=== PATIENT | male | born 1945 | race African-American/Black ===

== ENCOUNTER → 2018-01-02 | Outpatient (CLI) | payer MEDICARE | LOC: M.MRI 12-26 15:53 | DX: M47.896 Other spondylosis, lumbar region (principal); M47.892 Other spondylosis, cervical region ==

== ENCOUNTER → 2018-01-31 | Outpatient (CLI) | payer MEDICARE | LOC: M.LAB 11:41 | DX: N40.1 Benign prostatic hyperplasia with lower urinary tract symptoms (principal) ==

== ENCOUNTER 2018-10-31 17:00 | Inpatient (IN) | payer MEDICARE ==
[~2018-10-31] VITALS: Ht 175.3 cm; Wt 82.1 kg
[2018-10-31 17:10] VITALS: BP 158/76
[2018-10-31] MEDS ORDERED: NORVASC2.5 MG PO (17:14)
[2018-10-31 18:18] LABS: ABSOLUTE BASOPHILS 0.1 thou/uL (0.0-0.2); ABSOLUTE EOSINOPHILS 0.2 thou/uL (0.0-0.7); ABSOLUTE LYMPHOCYTES 1.4 thou/uL (0.8-5.3); ABSOLUTE MONOCYTES 0.8 thou/uL (0.0-1.2); ABSOLUTE NEUTROPHILS 2.9 thou/uL (1.6-8.1); BASOPHILS 1.2 %; EOSINOPHILS 2.9 %; HEMATOCRIT 43.2 % (42.0-52.0); HEMOGLOBIN 14.6 gm/dL (14.0-18.0); LYMPHOCYTES 26.5 %; MCH 31.8 pg (26.0-34.0); MCHC 33.8 g/dL (28.0-37.0); MCV 93.9 fL (80.0-100.0); MONOCYTES 14.7 %; MPV 8.5 fl. (7.2-11.1); NUCLEATED RBCS 0 /100WBC; PLATELET COUNT* 242 thou/uL (150-400); POLYS 54.7 %; RDW-CV 14.7 % (10.5-14.5); WBC 5.3 thou/uL (4.0-11.0)
[2018-10-31 18:23] LABS: CALCIUM 8.9 mg/dL (8.5-10.1); CREATININE 1.4 mg/dL (0.6-1.3); POTASSIUM 3.7 mmol/L (3.5-5.1)
[2018-10-31 18:28] LABS: ALBUMIN 3.4 g/dL (3.4-5.0); MAGNESIUM 1.8 mg/dL (1.8-2.4); TOTAL BILIRUBIN 0.2 mg/dL (<0.1-1.0); TOTAL PROTEIN 7.4 g/dL (6.4-8.2)
[2018-10-31 18:34] LABS: BE -3.2 mmol/L (-2 to +3); HCO3 21.3 mmol/L (22.0-26.0); PCO2 36.6 mmHg (35.0-45.0); PO2 106.3 mmHg (75.0-100.0); pH 7.383 (7.340-7.450)
[2018-10-31 21:11] LABS: URINE BILIRUBIN NEGATIVE (Negative); URINE BLOOD NEGATIVE (Negative); URINE CLARITY CLEAR; URINE COLOR YELLOW; URINE GLUCOSE-RANDOM NEGATIVE (Negative); URINE KETONES NEGATIVE (Negative); URINE LEUKOCYTES-REFLEX NEGATIVE (Negative); URINE NITRITE-REFLEX NEGATIVE (Negative); URINE PROTEIN NEGATIVE (Negative); URINE SPECIFIC GRAVITY >= 1.030 (1.005-1.030); URINE UROBILINOGEN 0.2 E.U./dl (0.2-1.0)
[2018-10-31 22:06] VITALS: BP 144/75
[2018-11-01] VITALS: BP 149/85
[2018-11-01 04:00] VITALS: BP 140/74
[2018-11-01 07:45] VITALS: BP 143/65
--- NOTE | 2018-11-01 13:45 | EKG ---
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 11/01/18 1345 39 Oziel Johnson MD, FAC /EPI
[2018-11-01 14:02] LABS: INFLUENZA A ANTIGEN None Detected (None Detect); INFLUENZA B ANTIGEN None Detected (None Detect)
[2018-11-01 16:00] VITALS: BP 144/75
[2018-11-01 19:30] VITALS: BP 149/70
[2018-11-02 04:00] VITALS: BP 139/69
[2018-11-02 04:06] LABS: HEMATOCRIT 41.1 % (42.0-52.0); HEMOGLOBIN 13.4 gm/dL (14.0-18.0); MCH 31.2 pg (26.0-34.0); MCHC 32.7 g/dL (28.0-37.0); MCV 95.2 fL (80.0-100.0); NUCLEATED RBCS 0 /100WBC; PLATELET COUNT* 253 thou/uL (150-400); RBC 4.31 mil/uL (4.50-6.00); RDW-CV 15.1 % (10.5-14.5)
[2018-11-02 04:32] LABS: CALCIUM 9.1 mg/dL (8.5-10.1); CREATININE 1.3 mg/dL (0.6-1.3); MAGNESIUM 1.6 mg/dL (1.8-2.4); POTASSIUM 3.9 mmol/L (3.5-5.1)
[2018-11-02 04:51] LABS: WBC 22.8 thou/uL (4.0-11.0)
[2018-11-02 05:36] LABS: ABSOLUTE LYMPHOCYTES 1.4 thou/uL (0.8-5.3); ABSOLUTE MONOCYTES 1.1 thou/uL (0.0-1.2); ABSOLUTE NEUTROPHILS 20.3 thou/uL (1.6-8.1)
[2018-11-02 05:37] LABS: ANISOCYTOSIS 1+; PLATELET ESTIMATE ADEQUATE; POIKILOCYTOSIS 1+
[2018-11-02 09:00] VITALS: BP 141/69
[2018-11-02] MEDS ORDERED: AZITHROMYCIN 2250 MG PO (09:07)
[2018-11-02] MEDS ORDERED: ADVAIR HFA 230M12 GM INH (09:07)
[2018-11-02] MEDS ORDERED: CEFDINIR300 MG PO (09:07)
[2018-11-02] MEDS ORDERED: PREDNISONE 10 M10 MG PO (09:07)
[2018-11-02] MEDS ORDERED: VENTOLIN HFA 1818 GM INH (09:07)
[2018-11-02 11:57] VITALS: BP 141/69
[2018-11-02 12:26] VITALS: BP 141/69
== END 2018-11-02 12:26 | disposition home or self-care (01) | DRG 871 ==
LOC: M.ERS 17:00 → M.TBA-ER 21:05 → M.ORTHSURG 21:05
PROVIDERS: Emergency Medicine; Internal Medicine; Personal Emergency Response Attendant; ADMIT Internal Medicine
DX: A41.9 Sepsis, unspecified organism (principal); J18.0 Bronchopneumonia, unspecified organism; N17.0 Acute kidney failure with tubular necrosis; J44.0 Chronic obstructive pulmonary disease with (acute) lower respiratory infection; J44.1 Chronic obstructive pulmonary disease with (acute) exacerbation; I10 Essential (primary) hypertension; I25.10 Atherosclerotic heart disease of native coronary artery without angina pectoris; F17.210 Nicotine dependence, cigarettes, uncomplicated; E86.9 Volume depletion, unspecified; J84.10 Pulmonary fibrosis, unspecified; E78.5 Hyperlipidemia, unspecified; I25.2 Old myocardial infarction; Z79.899 Other long term (current) drug therapy

== ENCOUNTER 2019-07-27 12:10 | Emergency (ER) | payer MEDICARE ==
[~2019-07-27] VITALS: Ht 175.3 cm; Wt 75.8 kg
[~2019-07-27 12:10] MED LIST: ADVAIR HFA 230M12 GM INH; AZITHROMYCIN 2250 MG PO; CEFDINIR300 MG PO; NORVASC2.5 MG PO; PREDNISONE 10 M10 MG PO; VENTOLIN HFA 1818 GM INH
[2019-07-27] MEDS ORDERED: NABUMETONE 750750 M1 PO (13:14)
[2019-07-27 13:30] VITALS: BP 125/69
== END 2019-07-27 13:30 | disposition home or self-care (01) ==
LOC: M.ERS 12:10
DX: S60.221A Contusion of right hand, initial encounter (principal); M19.041 Primary osteoarthritis, right hand; F17.210 Nicotine dependence, cigarettes, uncomplicated; I10 Essential (primary) hypertension; J44.9 Chronic obstructive pulmonary disease, unspecified; W22.8XXA Striking against or struck by other objects, initial encounter; Y93.89 Activity, other specified; Y92.89 Other specified places as the place of occurrence of the external cause; Y99.8 Other external cause status

== ENCOUNTER 2020-07-04 22:18 | Emergency (ER) | payer MEDICARE ==
[~2020-07-04] VITALS: Ht 175.3 cm; Wt 77.1 kg
[~2020-07-04 22:18] MED LIST changes: +NABUMETONE 750750 M1 PO
[2020-07-04] MEDS ORDERED: PROAIR HFA8.5 GM INH (22:30)
[2020-07-04] MEDS ORDERED: ALBUTEROL2.5 MG/31 INH (22:30)
[2020-07-04 22:43] LABS: ABSOLUTE BASOPHILS 0.1 thou/uL (0.0-0.2); ABSOLUTE EOSINOPHILS 0.3 thou/uL (0.0-0.7); ABSOLUTE LYMPHOCYTES 3.5 thou/uL (0.8-5.3); ABSOLUTE NEUTROPHILS 4.5 thou/uL (1.6-8.1); BASOPHILS 1.4 %; EOSINOPHILS 2.9 %; HEMATOCRIT 46.9 % (42.0-52.0); HEMOGLOBIN 15.8 gm/dL (14.0-18.0); LYMPHOCYTES 37.4 %; MCH 31.9 pg (26.0-34.0); MCHC 33.8 g/dL (28.0-37.0); MCV 94.5 fL (80.0-100.0); MPV 8.1 fl. (7.2-11.1); NUCLEATED RBCS 0 /100WBC; PLATELET COUNT* 255 thou/uL (150-400); POLYS 47.3 %; RBC 4.97 mil/uL (4.50-6.00); RDW-CV 15.3 % (10.5-14.5); WBC 9.4 thou/uL (4.0-11.0)
[2020-07-04 22:51] LABS: CALCIUM 8.6 mg/dL (8.5-10.1); CREATININE 1.6 mg/dL (0.6-1.3); POTASSIUM 4.1 mmol/L (3.5-5.1)
[2020-07-04 22:52] LABS: APTT 25.5 Seconds (25.0-31.3)
[2020-07-04 23:05] LABS: ALBUMIN 3.7 g/dL (3.4-5.0); CK-MB MASS 1.1 ng/mL (<0.5-3.6); MAGNESIUM 1.8 mg/dL (1.8-2.4); TOTAL BILIRUBIN 0.3 mg/dL (<0.1-1.0); TOTAL PROTEIN 7.6 g/dL (6.4-8.2)
[2020-07-05 01:50] VITALS: BP 122/58
--- NOTE | 2020-07-05 10:19 | EKG ---
[place] [address] ELECTROCARDIOGRAM REPORT Name: ADEBAYOINDU Pierre Room: [facility]#: [id number] Admission: 07/04/20 Attend Phys: Discharge: 07/05/20 Date of : 41 Date of Service: 07/04/202221 Report #: [id number] THIS REPORT FOR: //name// [facility] ED Test Date: 2020-07-04 Test Time: 22:22:37 Pat Name: INDU FIORE Department: Room: Gender: Skiff Operator: : 1945 Requested By: Trevin Stauffer Order Number: [id number] MD: Hayes Montalvo Measurements Intervals [place] Rate: 58 P: 48 MN: 165 QRS: 19 QRSD: 88 T: 22 QT: 379 QTc: 373 Interpretive Statements Sinus rhythm Low voltage, extremity leads septal infarct, old Baseline wander in lead(s) III,aVL Compared to ECG 10/31/2018 18:40:51 no change Electronically Signed On 07-05-2020 10:19:19 CDT by Hayes Montalvo [email or web address] <ELECTRONICALLY SIGNED> By: Hayes Montalvo MD, [facility] 07/05/20 1019 [id number] Hayes Montalvo MD, [facility] /EPI
== END 2020-07-05 01:50 | disposition home or self-care (01) ==
LOC: M.ERS 22:18
PROVIDERS: Family Medicine
DX: R07.89 Other chest pain (principal); J44.9 Chronic obstructive pulmonary disease, unspecified; I10 Essential (primary) hypertension; F17.210 Nicotine dependence, cigarettes, uncomplicated

== ENCOUNTER → 2020-07-27 | Outpatient (CLI) | payer MEDICARE ==
[~2020-07-27] MED LIST changes: +ALBUTEROL2.5 MG/31 INH; +PROAIR HFA8.5 GM INH
== END ==
LOC: M.ULTRA 07:58
PROVIDERS: ATTEND Nurse Practitioner Family
DX: K76.0 Fatty (change of) liver, not elsewhere classified (principal); R74.8 Abnormal levels of other serum enzymes; K76.89 Other specified diseases of liver

== ENCOUNTER → 2020-08-07 | Outpatient (CLI) | payer MEDICARE | LOC: M.ULTRA 08:30 | PROVIDERS: ATTEND Podiatrist Foot & Ankle Surgery | DX: I25.10 Atherosclerotic heart disease of native coronary artery without angina pectoris (principal); I10 Essential (primary) hypertension ==

== ENCOUNTER → 2020-08-27 | Outpatient (CLI) | payer MEDICARE ==
--- NOTE | 2020-08-27 13:25 | CARDNUC ---
[place] [address] CARDIAC NUCLEAR IMAGING REPORT Name: INDU FIORE Room: [facility]#: [id number] Admission: 08/27/20 Attend Phys: Hayes Montalvo MD Discharge: Date of : 41 Date of Service: 08/27/20 1324 Report #: [id number] THIS REPORT FOR: cc: Kristi Stephen Stefany RNP Liston, Michael J. MD [facility] ~ APPROVED REPORT Study performed: 08/27/2020 09:32:06 Exam: Nuclear Stress Test Indication: Abnormal EKG, Chest pain Patient Location: Out-Patient Stress Tech: Candy Vaca Stress Nurse: Hodan Chaves RN NM Tech:RACHEL Carrizales Ht: 5 ft 7 in Wt: 172 lbs BSA: 1.90 m2 BMI: 26.93 Medical History Medical History: CKD, COPD, Hyperlipidemia, HTN Medications: amlodipine Allergies: No known drug allergies Cardiac Risk Factors: Age, HTN, Hyperlipidemia, Tobacco History (Current/Recent) Exercise History: Sedentary Stress Test Details Stress Test: Pharmacologic stress testing performed using 0.4 mg of regadenoson per 5 mL given IV over 10 seconds. HR Resting HR: 48 bpm Max Heart Rate (APMHR): 144 bpm Max HR Achieved: 85 bpm Target HR (85% APMHR): 122 bpm % of APMHR: 59 Recovery HR: 72 bpm BP Resting BP: 145/74 mmHg Max BP: 133/70 mmHg ECG Resting ECG: [place] [address] CARDIAC NUCLEAR IMAGING REPORT Name: ZEESHANTracyINDU Room: [facility]#: [id number] Admission: 08/27/20 Attend Phys: Hayes Montalvo MD Discharge: Date of : 41 Date of Service: 08/27/20 1324 Report #: [id number] Stress ECG: Sinus Rhythm ST Change: None Arrhythmia: None Recovery ECG: Sinus Rhythm Recovery ST Change: None Recovery Arrhythmia: None Clinical Reason for Termination: Completed protocol The patient tolerated Lexiscan infusion without significant cardiac symptoms. Nurse Comments pt has poor balance Stress ECG Conclusion The baseline EKG shows sinus bradycardia without significant ST segment or T wave abnormality. EKGs obtained during and post Lexiscan stress show sinus rhythm with no significant ST segment or T wave changes when compared to baseline. There were no significant stress-induced arrhythmias. NM EXAM: Myocardial Perfusion REST/STRESS Imaging Protocol: Rest Tc-99m/Stress Tc-99m 1 day Resting Data Rest SPECT myocardial perfusion imaging was performed in supine position 30 minutes following the intravenous injection of 10.1 mCi of Tc-99m Sestamibi. Time of rest injection: 739 Date: 08/27/2020 The images were gated to evaluate regional wall motion and calculate left ventricular ejection fraction. Administration Route: IV Administration Site: Right Hand Pharmacologic Stress Pharmacologic stress test was performed by injecting Regadenoson 0.4 mg IV push followed by the intravenous injection of 32.0 mCi of Tc-99m Sestamibi. Time of stress injection: 924 Date: 08/27/2020 Administration Route: IV Administration Site: Right Hand Gated Stress SPECT was performed 40 minutes after stress injection. The images were gated to evaluate regional wall motion and calculate left [place] [address] CARDIAC NUCLEAR IMAGING REPORT Name: INDU FIORE Room: [facility]#: [id number] Admission: 08/27/20 Attend Phys: Hayes Montalvo MD Discharge: Date of : 41 Date of Service: 08/27/20 1324 Report #: [id number] Prone imaging was performed. Study Quality Study: Good Artifact: Mild Diaphragmatic artifact Study Data At rest, the left ventricular ejection fraction was 77%.. Post stress, the left ventricular ejection was 74%.. TID = 0.99. Perfusion Perfusion images obtained in the supine position at rest show photopenia in the inferior wall that is not as noted on post Lexiscan supine stress images. Post-rest prone images show uniform uptake of the radioisotope throughout the myocardium. There were no defects to suggest infarct or ischemia. Wall Motion Normal left ventricular wall motion. Nuclear Conclusion ECG Findings: negative for ischemia Clinical Findings: negative for ischemia Nuclear Findings: negative for ischemia Exercise Capacity: not assessed Left Ventricular Function: normal Risk Study: low Perfusion images show no defect to suggest infarct or ischemia. Left ventricular systolic function is normal on gated studies. This is a low risk study. <Conclusion> The baseline EKG shows sinus bradycardia without significant ST segment or T wave abnormality. EKGs obtained during and post Lexiscan stress show sinus rhythm with no significant ST segment or T wave changes when compared to baseline. There were no significant stress-induced arrhythmias. <ELECTRONICALLY SIGNED> By: Jarad Contreras MD, FACC 08/27/20 1324 132 Jarad Contreras MD, FACC /INF
== END ==
LOC: M.NUC 07-30 12:37
PROVIDERS: ATTEND Internal Medicine Cardiovascular Disease
DX: R07.1 Chest pain on breathing (principal)